=== PATIENT | female | born 1960 | race Caucasian/White ===

== ENCOUNTER 2023-08-26 18:56 | Emergency (ER) | payer OTHER, SELFPAY ==
[2023-08-26 19:12] VITALS: BP 149/86; PULSE 74; RESP 18; TEMP 36.6; O2SAT 96; BMI 29.2
--- NOTE | 2023-08-26 19:18 | ED.SKABFB ---
HPI - Skin/Abscess/Foreign Bdy General Time Seen by Provider: 19:18 Date Seen: 08/26/23 Chief complaint: Skin/Abscess/Foreign Body Stated complaint: Right hand pain, numbness Time Seen by Provider: 08/26/23 19:07 Source: patient and RN notes reviewed Mode of arrival: ambulatory Limitations: no limitations History of Present Illness HPI narrative: This 63-year-old female has started having redness and swelling on the dorsum of her right hand overlying the base of the thumb and base the 2nd finger, she feels like the redness is starting to extend up into the forearm. She states it feels hot and it hurts. Last night if she tried to put her hand down in a dependent position at which just throb. She has been trying to ice it. She does not remember any injury. She has not had any fevers or chills, is not feeling ill or any general illness type symptoms. She has never had MRSA, does not have a history of cellulitis that she is aware of. Related Data Home Medications Medication Instructions Recorded Confirmed apixaban 5 mg (74 tabs) tablets in mg PO 08/26/23 a dose pack ([employer] DVT-PE Treat 30D Start) cyclobenzaprine 5 mg tablet 5 mg PO 3XD PRN 08/26/23 08/26/23 gabapentin 100 mg capsule mg PO 08/26/23 sertraline 100 mg tablet 100 mg PO DAILY 08/26/23 08/26/23 Previous Rx's Medication Instructions Recorded cephalexin 500 mg tablet 500 mg PO TID #20 tabs 08/26/23 Allergies Allergy/AdvReac Type Severity Reaction Status Date / Time No Known Drug Allergies Allergy Verified 08/26/23 19:14 Review of Systems Narrative: As per HPI. PFSH PFS Social History Smoking Status: Current every day smoker What tobacco products do you use: cigarettes Smoking packs per day: 1 Smoking cigarettes per day: 20.0 Do you use any of these nicotine containing products: None How often do you have a drink containing alcohol: monthly or less AUDIT-C Alcohol total score: 1 Non-prescribed substance use: denies use Exam Const: Vital Signs, click to edit/add: Vital Signs - 24 hr 08/26/23 19:12 Temperature 97.9 F Pulse Rate [Pulse Oximeter] 74 Respiratory Rate 18 Blood Pressure [Ri t Upper Arm] 149/86 H Pulse Oximetry 96 Oxygen Delivery Me thod Room Air This 63-year-old female is ambulatory into the ED of her own accord. She is alert, interactive, no apparent distress. Face atraumatic. Lungs are clear, good air entry, no wheezing or crackles. CV regular rate and rhythm, no murmur, normal S1 and S2 noted. On inspection of her right hand, notice erythema, mild swelling extending from the proximal phalanx onto the dorsum of the hand, stopping before the 2nd metacarpophalangeal joint, extending down just slightly over the wrist and fainter erythema with less swelling into the proximal forearm. This is all on the dorsal surface, does not reflect onto the volar surface. When I isolate her wrist, her 1st CMC joint, her 1st metacarpophalangeal joint, her 2nd metacarpophalangeal joint, there is no joint swelling in really no pain with range of motion of these joints. When I press over the area of erythema and warmth, she feels generalized pain. The red area is definitely warm. This seems to be consistent with cellulitis. She has a few nondescript pinpoint skin breaks outside of the erythema on her left 2nd finger and then on the hand. There is no fluctuance anywhere, no drainable collection that is identifiable. Documenting provider has reviewed patient's vital signs: yes Course Course ED Course: Discussed with patient that this certainly seems to be consistent with cellulitis. Given that I can isolate no joint swelling or joint pain with this, this does rule out things like pseudogout or gout for me. We will give her dose of oral Keflex here, send the rest of the prescription to be filled for her tomorrow in her pharmacy as requested. We have discussed management, will discharge to home for further outpatient treatment. Vital Signs Vital signs: Initial Vital Signs Temperature 97.9 F 08/26/23 19:12 Temperature Source Temporal Artery Scan 08/26/23 19:12 Pulse Rate 74 08/26/23 19:12 Respiratory Rate 18 08/26/23 19:12 Blood Pressure 149/86 H 08/26/23 19:12 Blood Pressure Mean 107 H 08/26/23 19:12 Blood Pressure Position Sitting 08/26/23 19:12 Pulse Oximetry 96 03/17/24 19:12 Oxygen Delivery Method Room Air 08/26/23 19:12 Vital Signs Temperature 97.9 F 08/26/23 19:12 Pulse Rate 74 08/26/23 19:12 Respiratory Rate 18 08/26/23 19:12 Blood Pressure 149/86 H 08/26/23 19:12 Pulse Oximetry 96 08/26/23 19:12 Oxygen Delivery Method Room Air 08/26/23 19:12 Temperature 97.9 F 08/26/23 19:12 Pulse Rate 74 08/26/23 19:12 Respiratory Rate 18 08/26/23 19:12 Blood Pressure 149/86 H 08/26/23 19:12 Pulse Oximetry 96 08/26/23 19:12 Oxygen Delivery Method Room Air 08/26/23 19:12 Discharge Plan Discharge Clinical Impression: Cellulitis Patient Disposition: Home, Self-Care Condition: Stable Instructions: Cellulitis (ED), Warm Compress or Soak (ED) Additional Instructions: Continue with the Keflex as prescribed, next dose due tomorrow morning. Can use Tylenol per bottle directions if needed for discomfort. Elevate and warm pack the hand. If you develop fevers, if the area of redness is rapidly expanding or if it is not improving in the next 24-48 hours, do need to seek re-evaluation. Note provided to be off work. Activity Level: Activity as Tolerated Prescriptions: New cephalexin 500 mg tablet 500 mg PO TID Qty: 20 0RF No Action sertraline 100 mg tablet 100 mg PO DAILY gabapentin 100 mg capsule PO cyclobenzaprine 5 mg tablet 5 mg PO 3XD PRN Eliquis DVT-PE Treat 30D Start 5 mg (74 tabs) tablets,dose pack PO Follow Up/Referrals: Provider,Not a Local [Primary Care Provider] - Stand Alone Forms: MyHealth Info Instructions
[2023-08-26] MEDS: cephALEXin 500 MG CAPSULE PO (19:29)
[2023-08-26 19:46] VITALS: BP 138/74; PULSE 80; RESP 18; TEMP 36.6; O2SAT 96
== END 2023-08-26 19:53 | disposition home or self-care (01) ==
PROVIDERS: Emergency Provider Family Medicine
DX: L03.113 Cellulitis of right upper limb (principal)
CPT/HCPCS: 99283; A9270